=== PATIENT | male | born 1990 | race Caucasian/White ===

== ENCOUNTER 2018-06-22 18:00 | Emergency (ER) | payer OTHER, SELFPAY ==
[2018-06-22 18:02] VITALS: BP 145/81; PULSE 89; RESP 14; TEMP 36.6; O2SAT 98; BMI 35.4
--- NOTE | 2018-06-22 18:35 | RAD_ITS ---
STUDY: X-RAY - RIGHT ANKLE REASON FOR EXAM: Male, 28 years old. Injury TECHNIQUE: 3 view(s) of the ankle. COMPARISON: None. FINDINGS: Normal visualized distal tibia and fibula. Normal medial and lateral malleoli. Normal tibiotalar articulation and ankle mortise. Normal visualized talus and calcaneus. The visualized subtalar, talonavicular, calcaneocuboid and tarsal articulations are normal. The soft tissue structures are unremarkable. RAD/Ankle min 3 Views IMPRESSION: Normal x-ray examination of the ankle. Electronically Signed: Doni Melara DO at 19:21 EST Tel [phone], Service support ,
--- NOTE | 2018-06-22 20:03 | ED.DCSUM_ITS ---
- ER Visit Summary Date of Service: 06/22/18 Chief Complaint: Right ankle pain History of Present Illness: The patient is a 28 M who has no primary care physician. He reports just prior to coming emergency department he was playing a game where he jumped off of a wall with his right foot to dunk a basketball and felt like somebody punched him in the back of his foot. Since that time he has not been able to walk. He denies any other injuries. He did not twist his ankle. Reports his pain currently is 1 out of 10 severity. Physical Examination: Vitals: Stable. Afebrile. General: Well-nourished and well-developed. Head: Normocephalic atraumatic. Neck: Supple, no lymphadenopathy. No JVD. Nontender. Cardiovascular: Regular rate and rhythm. No murmurs. Respiratory: No respiratory distress. Clear to auscultation bilaterally. Abdominal: Soft, nontender, nondistended, normal bowel sounds. No guarding, rebound, or peritoneal signs. Back: Nontender. Extremities: Obvious defect over his right Achilles tendon consistent with a rupture. He is Ward test is abnormal. There is no pain over the medial or lateral malleoli. He has normal sensation light touch distally.. Skin: Normal color, no rash. Neurologic: Alert and oriented ?3. Cranial nerves II through XII are intact. Normal strength and sensation. Psych: Normal affect. Test Results: X-ray is negative Emergency Department Course and Treatment: Patient refused pain medications. He was placed in a posterior splint with plantar flexion. Treatment Plan: Patient was discussed with Dr. Zazueta. He will be discharged instructions to follow-up tomorrow for another exam. Return to the emergency department for any worsening symptoms. Disposition: To home in improved and stable condition. Impression: 1. Right Achilles tendon rupture. 2. Posterior splint, fabricated. This note was generated with [employer] dictation software. It may contain incorrect words, spelling, and punctuation that were not noted in review of the chart prior to signing ED Disposition - Plan for ED Patient: Disposition: Home or Assisted Living Chief Complaint: Lower Extremity Injury Instructions: ED Tendon Rupture Achilles Prescriptions: Hydrocodone Bitart/Apap 5-325 [[place] 5MG-325MG] 1 tablet PO Q4H PRN PRN 2 Days #10 tablet PRN Reason: Pain Referrals: Vicente Zazueta DPM [STAFF PHYSICIAN] - 1 Day for another exam
[2018-06-22 20:33] VITALS: RESP 18; O2SAT 98
== END 2018-06-22 20:33 | disposition home or self-care (01) ==
LOC: ED 18:36
PROVIDERS: Emergency Provider Emergency Medicine
DX: S86.011A Strain of right Achilles tendon, initial encounter (principal); X58.XXXA Exposure to other specified factors, initial encounter; Y93.39 Activity, other involving climbing, rappelling and jumping off; Y92.9 Unspecified place or not applicable
CPT/HCPCS: 29515; 73610; 99283

== ENCOUNTER → 2018-06-26 06:32 | Outpatient (CLI) | payer OTHER, SELFPAY ==
[2018-06-22 18:02] VITALS: BMI 35.4
--- NOTE | 2018-06-26 06:39 | MRI_ITS ---
STUDY: MRI RIGHT ANKLE WITHOUT CONTRAST REASON FOR EXAM: Right ankle pain from jumping injury 4 days ago. TECHNIQUE: Standardized fat and water weighted pulse sequences were obtained in all 3 orthogonal planes. COMPARISON: Radiographs 06/22/2018. FINDINGS: There is edema in the subcutis adipose space. There is a lobulated ganglion cyst at the posterior aspect of the tibiotalar articulation (T2 coronal images 9, 10) measuring approximately 3.4 cm in length. Normal posterior tibialis tendon. Normal flexor digitorum longus tendon. Normal flexor hallucis longus tendon. Normal peroneus longus and brevis tendons. Normal tibialis anterior tendon. Normal extensor hallucis longus tendon. Normal extensor digitorum longus tendons. There is a tear of the Achilles tendon in the watershed zone with a gap of approximately 1.8 cm between the major fragments (inversion recovery sagittal images 9, 10). Normal plantar fascia. Normal plantar calcaneal tubercles. Normal intrinsic muscles of the rearfoot. Normal distal tibiofibular syndesmotic ligamentous complex. Normal lateral ligamentous complex. There a small cyst in the sinus tarsi (inversion recovery sagittal images 6, 7). Normal deltoid ligamentous complexes. Normal plantar calcaneonavicular (spring) ligament. There is a small tibiotalar joint effusion (inversion recovery sagittal 11, 12). Normal talar dome. Normal subtalar articulations. Normal talonavicular articulation. Normal calcaneocuboid articulation. Normal navicular-cuneiform articulations. There is a small cyst in the body of the calcaneus near the sinus tarsi. MRI/Lower Ext Joint Only (Routine) IMPRESSION: Achilles tendon tear. Small tibiotalar joint effusion. Ganglion cyst at the posterior aspect of the tibiotalar articulation. Electronically Signed: Hudson Larson MD at 15:18 EST Tel , Service support ,
== END ==
PROVIDERS: Family Provider Family Medicine; PCP Family Medicine; Referring Provider Podiatrist; Visit Provider Podiatrist
DX: S86.011A Strain of right Achilles tendon, initial encounter (principal); M25.571 Pain in right ankle and joints of right foot
CPT/HCPCS: 73721

== ENCOUNTER → 2018-06-28 14:13 | Outpatient (CLI) | payer OTHER, SELFPAY ==
[2018-06-22 18:02] VITALS: BMI 35.4
[2018-06-28 16:10] LABS: Absolute Lymphocyte Count 2.31 X10^3/ul (0.83-4.51); Basophil# 0.03 X10^3/uL; Basophil% 0.4 % (0-1); Eosinophil# 0.53 X10^3/uL; Eosinophils% 7.2 % (0-5); Hematocrit 46.2 % (40-54); Hemoglobin 15.7 g/dl (13.0-16.5); Lymphocyte # 2.31 X10^3/ul (4.0); Lymphocyte % 31.5 % (19-41); Mean Corpuscular Hgb 29.3 pg (27.0-32.0); Mean Corpuscular Volume 86.2 fL (80-94); Monocyte# 0.44 X10^3/uL; Neutrophil # 4.02 X10^3/uL (2.7-7.7); Neutrophil % 54.8 % (47-70); Platelet Count 275 K/mm3 (150-450); RBC Distribution Width CV 12.2 % (11.6-14.6); RBC Distribution Width SD 38.2 fl (35.1-43.9); Red Blood Count 5.36 M/mm3 (4.6-6.2); White Blood Count 7.3 K/mm3 (4.4-11.0)
[2018-06-28 16:21] LABS: POSITIVE COUNT NO; POSITIVE DIFFERENTIAL NO; POSITIVE MORPHOLOGY NO
[2018-06-28 16:25] LABS: ALB/GLOB Ratio 1.2 RATIO (0.9-2.4); AST(SGOT) 28 U/L (15-37); Alanine Aminotransfer ALT/SGPT 63 U/L (16-61); Albumin, Serum 4.3 g/dL (3.2-5.0); Alkaline Phosphatase 124 U/L (45-117); Anion Gap 9 (5-15); BUN 18 mg/dL (7-18); BUN/Creat Ratio 15.8 RATIO (10-20); Calcium,Total 9.3 mg/dL (8.5-10.1); Chloride 105 mmol/L (98-107); Creatinine, Serum 1.14 mg/dL (0.70-1.30); EST Glomerular Filtration Rate 81 mL/min (>60); Est Glom Filt Rate - Afr Amer 98 mL/min (>60); Globulin 3.5 g/dL (2.2-4.2); Glucose 79 mg/dL (74-106); Protein, Total 7.8 g/dL (6.4-8.2); Sodium Level 139 mmol/L (136-145)
== END ==
PROVIDERS: Family Medicine; Family Provider Family Medicine; PCP Family Medicine; Visit Provider Family Medicine
DX: Z01.818 Encounter for other preprocedural examination (principal)
CPT/HCPCS: 36415; 80053; 85025

== ENCOUNTER 2018-06-30 14:04 | Day surgery (SDC) | payer OTHER, SELFPAY ==
[2018-06-30] VITALS (7 sets, daily range): BP systolic 130–158; BP diastolic 73–109; PULSE 70–98; RESP 16–18; TEMP 36.3–37; O2SAT 93–100; BMI 36.4
[2018-06-30] MEDS: Cefazolin 2 GM in 0.9% Normal Saline 100 ML IV (17:10)
--- NOTE | 2018-06-30 17:32 | RAD_ITS ---
STUDY: X-RAY - RIGHT ANKLE REASON FOR EXAM: Male, 28 years old. Achilles tendon repair. TECHNIQUE: 1 view(s) of the ankle. COMPARISON: None. FINDINGS: 1 lateral view of the calcaneus is submitted. There is a marker in the [id number] which projects over the posterior calcaneal tubercle either overlapping or embedded in the substance of the calcaneus. RAD/Ankle min 3 Views IMPRESSION: Single lateral view of the calcaneus with overlying marker/hardware appearing to be overlapping or embedded in the posterior portion of the calcaneal tubercle. Electronically Signed: Alea Thomas MD at 0:03 EST , Service support ,
[2018-06-30] MEDS: Bupivacaine 0.5% PF 10 ML VIAL (18:35)
--- NOTE | 2018-06-30 18:46 | OP.PN_ITS ---
Problem List (1) Achilles rupture, right Status: Acute (2) Pain of right lower extremity Status: Acute Immediate Post-Op Note Date of Procedure: 06/30/18 - Surgeon: Sangeetha Issa DPM. Family Law Mediator: Peter Bentley, PGY3 Primary Surgeon/Physician: Sangeetha Issa DPM wooden tank erector: none Pre-Operative Diagnosis: right achilles tendon rupture Post-Operative Diagnosis: right achilles tendon rupture Surgery/Procedure Performed:: repair of ruptured achilles tendon of right lower extremity (with arthrex PARS midsubstance speed bridge system) Description of Surgical Findings:: Hemostasis controlled Materials: 2-0 FiberWire from Arthrex PARS system and to swivel lock speed bridge anchors, 3-0 Vicryl, 3-0 nylon Complications: None Findings: Plantarflexion noted with Ward test after repair. See detailed operation report The patient tolerated the procedure and anesthesia well. He was transported to the PACU vital signs stable and vascular status intact to the right lower extremity. Postoperative orders were entered electronically. He will be discharged home upon continued stability. Estimated Blood Loss: < 50 mL Specimen's removed: none Type of Anesthesia:: General, Local - Postoperative: 15 cc of 1: 1 mixture of 0.5% Marcaine plain and 1% lidocaine plain administered in local infiltrative manner to all surgical repair sites, and sural nerve block fashion of the right lower extremity - Admit VTE Documentation VTE Present on Admission: No VTE Mechan Device Prophylaxis: SCD's VTE Pharm Prophylaxis ordered?: No Reason prophylaxis not ordered:: Treatment Not Indicated
--- NOTE | 2018-06-30 18:48 | DCINST_ITS ---
Discharge Diet: No Restrictions Discharge Activity: May not drive while taking narcotic pain medications., May Not Shower, Use Crutches - ok to use knee roller Weight Bearing Status: No weight bearing - keep splint intact Keep extremity elevated above heart level: Right Leg Call your doctor if your incision/area has: Continuous Slow Oozing, Sudden Increased Bleeding, Increased Pain/ Swelling, Increased Redness, Foul Smelling Discharge, Swelling at the incision site Call your doctor if you observe: Fever of 101 or Higher, Coldness, Increased Pain, Numbness or Tingling, Calf discomfort, Uncontrolled pain Cleanse incision/area with: Keep Dressing Clean & Dry Allergies/Adverse Reactions: Allergies No Known Allergies Allergy (Verified 06/28/18 13:31) Medications to take at Discharge Omeprazole [Prilosec] 20 mg PO DAILY 06/28/18 Primary Care Physician: Vicente Bonilla MD [Primary Care Provider] - Test Results: Test results from this visit will be discussed in further detail at your follow- up appointment, if applicable. Please Follow Up With: Sangeetha Issa DPM When: 07/04/18 10:30 AM [facility] Call [phone] sooner if concerns Proposed Discharge Date: 06/30/18
--- NOTE | 2018-06-30 19:23 | PCM.OPRPT ---
Problem List (1) Achilles rupture, right Status: Acute (2) Pain of right lower extremity Status: Acute Report of Operation Date of Procedure: 06/30/18 - Surgeon: Sangeetha Issa DPM. Arabic Professor: Peter Bentley, PGY3 Pre-Operative Diagnosis: right achilles tendon rupture Post-Operative Diagnosis: right achilles tendon rupture Surgery/Procedure Performed:: repair of ruptured achilles tendon of right lower extremity (with arthrex PARS midsubstance speed bridge system) Description of Surgical Findings:: Hemostasis: Well-padded pneumatic right thigh tourniquet 300 mmHg, 55 minutes Materials: 2-0 FiberWire from Arthrex PARS system and to swivel lock speed bridge anchors, 3-0 Vicryl, 3-0 nylon Complications: None director business integration: none Type of Anesthesia:: General, Local - Postoperative: 15 cc of 1: 1 mixture of 0.5% Marcaine plain and 1% lidocaine plain administered in local infiltrative manner to all surgical repair sites, and sural nerve block fashion of the right lower extremity Specimen's removed: none Estimated Blood Loss (mL): < 50 mL Description of Procedure: Indications: This 28-year-old male with no significant past medical history sustained an injury within the past week while playing basketball. He landed from a jump and reports it felt like somebody kicked him in the back of the leg. He was then unable to bear weight and control the motion of his foot. His neurovascular status remains intact. He does have lack of plantar flexion available with the Ward test on the right lower extremity. The preoperative indications, planned procedure, possible benefits, risks, complications, and anticipated healing time and management were discussed in detail with patient. He understands and elects to proceed with surgery at this time. No guarantees were made. He understands complications and risks include but are not limited to the following: Pain, swelling, scarring, numbness, chronic pain, over under correction, hardware failure, need for revisional surgery, blood clot, allergic reaction, loss of limb, function, or life. I answered all of his questions. The surgical consent and surgical limb were signed. His preoperative history and physical exam was reviewed as well as his preoperative diagnostic data. His initial x-rays obtained at the emergency room did not demonstrate any other associated fractures or dislocations. An MRI was obtained and it demonstrated a 2.8 cm gap of his ruptured Achilles tendon approximately 4 cm proximal to the insertion of the Achilles on the calcaneus. There were no other acute injuries noted. Procedure in detail: The patient was transported to the operating room via cart and placed on the operating table in the prone position. Final verification of the patient, surgery, limb designation was performed via the timeout procedure. General anesthesia was initiated prior to patient positioning in the prone position. A well-padded pneumatic right thigh tourniquet was placed. IV antibiotics were administered preoperatively by the anesthesia team. The right lower extremity was prepped and draped in the usual aseptic manner. An Esmarch bandage was used to exsanguinate the limb and the tourniquet was inflated at this time. Surgery began in the following manner: Attention was first directed to the palpable del proximal aspect which was around the 7 cm viktor proximal to the insertion at the achilles tendon on the calcaneus. Just proximal to this presumed Achilles rupture site about 1 cm away, a transverse 2-1/2 centimeter linear incision was made in the skin. Blunt dissection was performed down to the peritenon level taking care to identify, protect, and retract all neurovascular structures at this point and throughout the remainder of the surgery. The peritenon was immediately identified and a small rent was made in the peritenon in which the Achilles tendon was next visualized as was the distal tear aspect. This was mobilized and the pars jig was entered along the proximal Achilles tendon portion. This was securely held in place meanwhile 5 Arthrex fiber wires were placed in a sequential manner according to standard protocol and they were locked in place and threaded through the proximal part of the Achilles tendon to create a percutaneous locking structure. These were tested and pulled to reduce creep. Additionally, a Nico needle was used to thread the loose FiberWire and so that they exit through the mid substance of the Achilles to improve tendon reapproximation. Next, 2 small centimeter linear incisions were made to the posterior aspect of the heel just distal to the Achilles attachment site through the skin. Blunt dissection was performed down to the bone. And Arthrex drill and tap were utilized to create the anchor points that would later receive the previously applied fiber wire throught the distal portion of the Achilles tendon. A banana wire lasso was next advanced through the distal part of the Achilles and out through the mid substance rupture area. The fiber wires were threaded through this and advanced down to the calcaneus anchor points. A swivel lock anchor was applied to each of the holes and secured in place. Intraoperative fluoroscopy was used to confirm adequate tapping and placement were performed. This was successfully done and was tested for strength and proper positioning which was achieved. This was secured in place with the ankle in maximum plantarflexion. Dorsiflexion was then noted with the Ward test and the tension balancing was equivalent to the contralateral non-injured side. Minimal deep suture was used to reapproximate the peritenon. Saline irrigation was performed. The tourniquet was deflated. Brisk capillary refill time was noted to all digits of the right foot and no pulsatile bleeding was noted. The skin was next reapproximated utilizing 3-0 nylon with simple and horizontal mattress technique. A postoperative dressing consisting of Adaptic soaked Betadine, 4 x 4 gauze, Kerlix were applied. Additionally, a well-padded posterior mold was applied with the ankle in a maximum plantar flexed position. After procedure: The patient tolerated the procedure and anesthesia well. He was transported to the PACU with vital signs stable and vascular status intact to the right lower extremity. He was advised to maintain a strict nonweightbearing status to the right lower extremity with his splint and dressings clean, dry, and intact. He was advised to follow up with me in the office in 1 week. To ice and elevate for pain and inflammation management. He was provided with postoperative pain medicine, [place], and advised on safe and proper use. All of his postoperative orders were entered electronically. He will be discharged home upon continued PACU stability. Sangeetha Issa DPM, FACFAS [facility] - Complications none
== END 2018-06-30 20:53 | disposition home or self-care (01) ==
LOC: SDC 14:05 → AC 14:06
PROVIDERS: Family Provider Family Medicine; PCP Family Medicine; Referring Provider Podiatrist; Visit Provider Podiatrist
PROC: (CPT 27650; principal; 2018-06-30 15:35)
DX: S86.011A Strain of right Achilles tendon, initial encounter (principal); Y93.39 Activity, other involving climbing, rappelling and jumping off; Y93.67 Activity, basketball; Y92.9 Unspecified place or not applicable; F17.220 Nicotine dependence, chewing tobacco, uncomplicated; K21.9 Gastro-esophageal reflux disease without esophagitis; Z79.899 Other long term (current) drug therapy
CPT/HCPCS: 01472; 27650; 64445; 73610; 76000; C1713; J7120; J2405

== ENCOUNTER 2018-10-23 08:30 | Outpatient (RCR) | payer OTHER, SELFPAY ==
[2018-06-30 14:28] VITALS: BMI 36.4
--- NOTE | 2018-08-28 08:35 | HP.PTEVAL_ITS ---
Patient's Visit Information MISHEL DAVIS is a 28 year old M referred to Physical Therapy by Sangeetha Issa DPM with a diagnosis of R dmitry srupture s/p repair 06/30. Date of Evaluation: 08/28/18 Physical Therapist: Kingsley Kim DPT, OCS, CSCS - Visit Plan Frequency: 2-3x /Week Duration: 2 Months Plan: 2-3x/week for 4-8 weeks for. 1. rollotu and stretch gastroc soleus. 2. strength and prorioception R ankle. 3. gait training to steps. 4. Return to function(sport allowed in late September) - Subjective Findings: 9 weeks(06/30) ago had R achilles repair. Torn palying game in wrestling room 3 months ago.. In cast for 3 weeks then walking boot since. No pain lately. Sleeping well in no boot. Is a student and can do all of that. Basic aDLs are OK, just slow. 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 - Objective walks with boot on R I, dons and doffs I. Walks without boot with R antalgia due to loos of ROM and keeps R hip abducted. R ankle aROM. Df: -2, eversion 20, inv: 25, PF 48. Gastroc and soleus very tight R as compared to L. strength is 4/5 R inv/ev and 4+ DF, then 3+ PF. L is 5/5 [address] directions. Tender slightly over achilles incision but healed well. Knee strength 5/ on L and 4+ on R. - Goals Goal 1:: Full aROM R ankle and no tightness in gastroc. Goal Time Frame: 2-4 Weeks Goal 2:: R heel raise easily and I Goal Time Frame: 6-8 Weeks Goal 3:: Walk without antalgia I in community Goal Time Frame: 2-4 Weeks Goal 4:: Sterps reciprocal without rail Goal Time Frame: 4-6 Weeks Goal 5:: Patient feel 100% back to normal ADLS outside of sports Goal Time Frame: 6-8 Weeks - Rehabilitation Potential Physical Therapy Diagnosis: R achilles repair Rehabilitation Potential: Fair - Anticipated Interventions Patient/Client Instruction: Educate patient on: Condition, Plan of Care For the Purpose of:: To decrease pain, To increase ROM, To improve muscle performance and motor function, To increase tolerance to activity/condition/position, To improve ability of physical actions for home/community/work/leisure Therapeutic Exercise to Include: Strength training, Balance training, Flexibilty training, Gait and locomotor training, Passive ROM, Active ROM For the Purpose of:: To increase ROM, To improve nutrient delivery to tissue, To increase oxygenation perfusion, To improve muscle performance and motor function, To improve ability to perform ADL's, To increase tolerance to activity/condition/position, To improve ability of physical actions for home/ community/work/leisure Manual Therapy Techniques to Include: Soft tissue mobilization For the Purpose of:: To increase ROM Cryotherapy (ice pack, ice massage): Yes For the Purpose of:: To decrease swelling/inflammation Thank you for the opportunity to evaluate your patient. For Medicare and Medicare HMO plans, please review the plan of care and approve it. It will need to be FAXED BACK to us at [phone] for Medicare purposes. For Medicare only, by signing this I certify the plan of care. Please let me know if there are questions or concerns regarding this plan of care. Physician Signature: Date:
--- NOTE | 2018-10-23 08:54 | HP.PTREVAL ---
Sangeetha Issa DPM, It has been my pleasure to treat MISHEL DAVIS over the last 7 visits for R dmitry srupture s/p repair 06/30. Please see the progress note below for an update on the physical therapy plan of care! Subjective: Not as strong as I want it to be but better. No pain. Strengthening in gym 2x/week. Objective/Function: Full AROM R ankle with 8 degrees DF and 10 degrees with knee bent. 5/5 PF strength to test but still weaker than L in heel raise. Able to heel raise on R and walks normal with VC after scar massage today. Jogging shows deficits in push off on R, tends to be on hindfoot moreso R than L with sideshuffle and carioce. OVERALL DOING VERY WELL, STILL A LITTLE WEAK BUT PROGRESSING NICELY. Plan Plan: pateint to emphasize strength and add in 3x/week gentle 100 foot jog and carioce/sideshuffle. Will see again in 3 weeks after doctor visit for progression to plyometrics, longer jog, sprint etc if released. Pt to call prior if problems. Goals Goal 1:: Full aROM R ankle and no tightness in gastroc. Goal Time Frame: 2-4 Weeks Goal Progress: Goal Met Goal 2:: R heel raise easily and I Goal Time Frame: 6-8 Weeks Goal Progress: unable today,approp. Goal 3:: Walk without antalgia I in community Goal Time Frame: 2-4 Weeks Goal Progress: Goal Met Goal 4:: Sterps reciprocal without rail Goal Time Frame: 4-6 Weeks Goal Progress: ,et but needs strength\ Goal 5:: Patient feel 100% back to normal ADLS outside of sports Goal Time Frame: 6-8 Weeks Goal Progress: Progressing Anticipated Interventions Patient/Client Instruction: Educate patient on: Condition, Plan of Care For the Purpose of:: To decrease pain, To increase ROM, To improve muscle performance and motor function, To increase tolerance to activity/condition/position, To improve ability of physical actions for home/community/work/leisure Therapeutic Exercise to Include: Strength training, Balance training, Flexibilty training, Gait and locomotor training, Passive ROM, Active ROM For the Purpose of:: To increase ROM, To improve nutrient delivery to tissue, To increase oxygenation perfusion, To improve muscle performance and motor function, To improve ability to perform ADL's, To increase tolerance to activity/condition/position, To improve ability of physical actions for home/community/work/leisure Manual Therapy Techniques to Include: Soft tissue mobilization For the Purpose of:: To increase ROM Cryotherapy (ice pack, ice massage): Yes For the Purpose of:: To decrease swelling/inflammation Please do not hesitate to contact me at [phone] by phone or if you have questions or concerns regarding this new plan of care! Sincerely, Kingsley Kim, DPT, OCS, CSCS
--- NOTE | 2019-01-30 18:41 | HP.PTDCNRP_ITS ---
HP - Discharge Summary (1) - Patient Information MISHEL DAVIS was seen in my office for initial evaluation on 08/28/18. The following Plan of Care was established for this patient: Initial Frequency: 2-3x /Week Initial Duration: 2 Months - Anticipated Interventions Patient/Client Instruction: Educate patient on: Condition, Plan of Care For the Purpose of:: To decrease pain, To increase ROM, To improve muscle p erformance and motor function, To increase tolerance to activity/condition/position, To improve ability of physical actions for home/community/work/leisure Therapeutic Exercise to Include: Strength training, Balance training, Flexibilty training, Gait and locomotor training, Passive ROM, Active ROM For the Purpose of:: To increase ROM, To improve nutrient delivery to tissue, To increase oxygenation perfusion, To improve muscle performance and motor function, To improve ability to perform ADL's, To increase tolerance to activity/condition/position, To improve ability of physical actions for home/community/work/leisure Manual Therapy Techniques to Include: Soft tissue mobilization For the Purpose of:: To increase ROM Cryotherapy (ice pack, ice massage): Yes For the Purpose of:: To decrease swelling/inflammation This patient was last seen in our office 10/23/18. Pertinent comments regarding their Physical therapy will appear below: Pt seen 7 visits of POC adn was doing well although still lacking strength at last visit. He was to strengthen at home and f/u 3 weeks later but cancelled one visit and no showed for another. at this point, it has been over 3 months adn I will discontinue due to nonattendance At this point I will be discontinuing this patient from physical therapy. I would be happy to see this patient again in the future if found appropriate by the physician. Thank you! Kingsley Kim, DPT, OCS, CSCS
== END 2018-10-23 19:00 | disposition home or self-care (01) ==
LOC: PT 08:30
PROVIDERS: Family Provider Family Medicine; PCP Family Medicine; Referring Provider Podiatrist; Visit Provider Podiatrist
DX: Z98.890 Other specified postprocedural states (principal)
CPT/HCPCS: 97110; 97140; 97162; 97530

== ENCOUNTER 2019-08-16 09:10 | Observation (INO) | payer OTHER, SELFPAY ==
[2018-06-30 14:28] VITALS: BMI 36.4
[2019-08-16] VITALS (7 sets, daily range): BP systolic 115–155; BP diastolic 56–66; PULSE 52–66; RESP 14–18; TEMP 36.4–36.8; O2SAT 96–100; BMI 35.6; BMI 35.2
--- NOTE | 2019-08-16 09:21 | EKG12_ITS ---
Test Reason : Blood Pressure : / mmHG Vent. Rate : 064 BPM Atrial Rate : 064 BPM P-R Int : 142 ms QRS Dur : 090 ms QT Int : 462 ms P-R-T Axes : 050 054 037 degrees QTc Int : 476 ms Sinus rhythm with Premature atrial complexes Otherwise normal ECG Confirmed by SANTIAGO WEISS, CHENG ([id number]), avid editor DANISHA DIAZ ([id number]) on 08/20/2019 10:09:44 AM Referred By: Kingsley Brooks Confirmed By:CHENG HENDERSON MD
--- NOTE | 2019-08-16 09:25 | RAD_ITS ---
STUDY: X-RAY CHEST REASON FOR EXAM: Male, 29 years old. GOT UP THIS AM AND FELT LIKE HE WAS GOING TO PASS OUT. DIAPHORETIC, PALE, CLAMMY, NAUSEA. TECHNIQUE: Single AP portable view of the chest. COMPARISON: None. FINDINGS: EKG electrodes are seen. The lungs are clear and expanded. There is no demonstrated pleural abnormality. Normal size heart. Normal mediastinum and nathen. Normal visualized pulmonary arteries. Normal visualized aortic arch and descending thoracic aorta. Normal visualized thoracic spine. Normal visualized ribs, clavicles, and shoulders. There is no demonstrated abnormality of the visualized soft tissue structures of the upper abdomen. RAD/Chest 1 View (Portable) IMPRESSION: Normal x-ray examination of the chest. Electronically Signed: James Cannon, at 9:55 EST , Service support ,
[2019-08-16] MEDS: 0.9% Normal Saline 1,000 ML 1000 ML IV (09:26)
[2019-08-16] MEDS: Ondansetron 4 MG/2 ML Vial IV (09:30)
--- NOTE | 2019-08-16 09:37 | ED.DCSUM_ITS ---
History of Present Illness Chief Complaint: Dizziness Informant: Patient Onset: Today Context: Gradual Onset Timing: Continuous Narrative: Patient is a 29-year-old male with history of diet-controlled hypertension presenting with dizziness. Patient states when he woke up in the got out of bed this morning he started to feel dizzy. He noticed it mostly when he was walking from the bathroom. States he feels like he is going to pass out. He has some blurry vision associated with it. He has associated cold sweats and nausea as well as vomiting mucus. He denies any cough or myalgias. Eyes any fever or chills. He denies any chest pain, shortness of breath, abdominal pain or urinary symptoms. The symptoms started approximately an hour and a half prior to arrival. They have persisted. They do not seem to be associated with moving his head or position. They are worse when he tries to stand up or exert himself. Past Medical History - Allergies and Home Meds Allergies/Adverse Reactions: Allergies No Known Allergies Allergy (Verified 06/28/18 13:31) Past Medical History: - - Possible history of hypertension but station states he tries to control it with diet and exercise Surgical History: noncontributory Smoking Status: Never smoker Drugs: None - Family History Maternal Family History: Reports: - - no CVA Review of Systems General: Reports: Chills, Malaise, Sweats, - - Dizziness. Denies: Fever Eyes: Denies: Visual changes - bilaterally, Diplopia ENT: Denies: Rhinorrhea, Sore throat Cardiovascular: Denies: Chest pain, Palpitations Respiratory: Denies: Dyspnea, Cough, Dyspnea on exertion Gastrointestinal: Reports: Nausea, Vomiting. Denies: Abdominal pain, Diarrhea, Melena, Hematochezia Genitourinary: Denies: Dysuria, Hematuria, Frequency Musculoskeletal: Denies: Myalgias, Back pain, Extremity Pain Skin: Denies: Rash, Wounds Neurological: Denies: Headache, Weakness, Numbness Physical Exam Vital Signs/Narrative: Vital Signs Temp Pulse Resp BP Pulse Ox 08/16/19 09:11 97.5 F L 66 18 155/61 H 99 Inital Vital Signs reviewed: Yes General: Well nourished, Well developed, No Acute Distress Head: Normocephalic, Atraumatic Eyes: Perrl, EOMI, - - Bilateral horizontal nystagmus, fatiguing, no vertical nystagmus ENT: Moist mucous membranes, No rhinorrhea, TM's clear Neck: Supple, Nontender, No lymphadenopathy Cardiovascular: Regular rate, Regular rhythm, No murmurs Respiratory: No distress, CTA bilaterally, Chest nontender Abdomen: Soft, Nontender, Nondistended, Normal bowel sounds Back: Nontender, Normal Inspection Extremities: Nontender, No edema Skin: Normal color, No rash, Diaphoresis, Pallor Neurological: Alert, Oriented x3, Cranial nerves II-XII grossly intact, Normal Strength, Normal Sensation, - - Normal coordination with [id number] Psychological: Normal affect, Normal Mood Diagnostic/Tx/Re-eval - Rhythm Strip Rhythm Strip: Sinus Rhythm Rate: 64 Ectopy: None - EKG Initial EKG Interpretation: Sinus Rhythm, - - Normal sinus rhythm at a rate of 64 with sinus arrhythmia SC interval 142 QRS 90 QTc [address] segments - Medical Decision Making Patient is initially evaluated for nausea, feeling unwell and diaphoresis. He states he feels dizzy but he is nondescript. Is difficult to get an initial exam on him. He is given IV fluids and Zofran. He does have some mild nystagmus on exam initially. Work-up does show a mild transaminitis as well as an elevated total bili. He does not have any abdominal pain. He has had exposure to student with mono so I did check a Monospot which was negative. CT of the abdomen and pelvis did not show any acute intra-abdominal pathology. On reevaluation his vertigo is becoming more pronounced. It is reproducible with head movements but it is consistent with peripheral vertigo. He has a normal [id number] and no truncal ataxia. He is given IV Ativan for his symptoms. Patient has minimal improvement. He is then given p.o. Valium. He says he is starting to feel better. He is attempted to ambulate with the plan on discharge home but he is unable to because of the severity of his symptoms. Patient be admitted for symptom control secondary to his vertigo. ED Disposition - Plan for ED Patient: Disposition: Acute Care [facility] Diagnosis: Vertigo
[2019-08-16 09:42] LABS: Absolute Neutrophil Count 5.1 X10^3/uL (2.0-7.7); Basophil# 0.03 X10^3/uL; Basophil% 0.3 % (0-1); Eosinophil# 0.28 X10^3/uL; Eosinophils% 2.8 % (0-5); Hematocrit 45.8 % (40-54); Hemoglobin 15.1 g/dL (13.0-16.5); Lymphocyte % 39.3 % (19-41); Mean Corpuscular Hgb 28.5 pg (27.0-32.0); Mean Corpuscular Volume 86.4 fL (80-94); Mean Platelet Vol. 9.5 fl (6.2-12.0); Monocyte# 0.57 X10^3/uL; Monocyte% 5.7 % (0-10); NRBC Flagged by Analyzer 0 % (0-5); Neutrophil % 51.5 % (47-70); Platelet Count 235 K/mm3 (150-450); RBC Distribution Width CV 12.3 % (11.6-14.6); White Blood Count 9.9 K/mm3 (4.4-11.0)
[2019-08-16 09:57] LABS: ALB/GLOB Ratio 1.2 RATIO (0.9-2.4); AST(SGOT) 51 U/L (15-37); Alanine Aminotransfer ALT/SGPT 113 U/L (16-61); Albumin, Serum 4.2 g/dL (3.2-5.0); Alkaline Phosphatase 104 U/L (45-117); Anion Gap 7 (5-15); BUN 20 mg/dL (7-18); BUN/Creat Ratio 14.6 RATIO (10-20); Chloride 110 mmol/L (98-107); Creatinine, Serum 1.37 mg/dL (0.70-1.30); EST Glomerular Filtration Rate 65 mL/min (>60); Est Glom Filt Rate - Afr Amer 79 mL/min (>60); Estimated Creatinine Clearance 64.03 ml/min; Globulin 3.4 g/dL (2.2-4.2); Glucose 133 mg/dL (74-106); Lipase 97 U/L (73-393); Potassium 3.6 mmol/L (3.5-5.1); Protein, Total 7.6 g/dL (6.4-8.2); Sodium Level 143 mmol/L (136-145)
[2019-08-16 10:29] LABS: Internal QC Validated? YES +Cl - CLEAR BKGD; Monotest Negative (Negative)
[2019-08-16 10:30] LABS: Bacteria 0 SEEN /hpf (None Seen); Mucous, Urine 0 SEEN /hpf (<or=2+); Red Blood Cells-Urine 0 SEEN /hpf (0-5); Squamous Epithelial Cells - UA 0 SEEN /hpf (0-5); White Blood Cells 0 SEEN /hpf (0-5)
[2019-08-16 10:37] LABS: Color, Urine Yellow (Yellow); Glucose, Dipstick Normal (Normal); Ketone-Dipstick 15 mg/dl (Negative); Leukocyte Esterase-Dipstick Negative /ul (Negative); Nitrite-Dipstick Negative (Negative); Occult Blood-Urine Negative /ul (Negative); Protein-Dipstick Negative (Negative); Specific Gravity, Urine 1.015 (1.002-1.030); Urine Bilirubin Dipstick Negative (Negative); Urine Clarity Clear (Clear); Urine Urobilinogen Normal (Normal)
--- NOTE | 2019-08-16 10:48 | CT_ITS ---
STUDY: CT ABDOMEN AND PELVIS WITHOUT CONTRAST REASON FOR EXAM: Male, 29 years old. ELEV. LIVER ENZYMES. NAUSEA, TRANSAMINITIS, NAUSEA, DIAPHORETIC, PALE, CLAMMY, NEAR SYNCOPE RADIATION DOSAGE (If Supplied By Facility): CTDIvol = ( 14.31 ) mGy, DLP = ( 755.39 ) mGycm TECHNIQUE: Transaxial images were obtained from the dome of the diaphragm to the symphysis pubis without oral contrast, and without intravenous contrast. Sagittal and coronal images were reconstructed. Individualized dose optimization techniques were used for this CT. COMPARISON: None. FINDINGS: Minimal increased markings at the lung bases suggestive of mild bibasilar atelectasis. The visualized portions of the heart are within normal limits. Normal liver. Normal gallbladder and extrahepatic biliary system. Normal spleen. Normal pancreas. Normal bilateral adrenal glands. Normal right kidney. Normal left kidney. There is a small hiatal hernia. Normal small intestine. Normal colon. The appendix is visualized and appears normal. Normal abdominal aorta. Normal inferior vena cava. Normal retroperitoneum. Normal urinary bladder. Normal abdominal wall. Normal osseous structures. CT/Abdomen/Pelvis W IV Cont ONLY IMPRESSION: Normal unenhanced CT of the abdomen and pelvis. Electronically Signed: James Cannon, at 11:42 EST , Service support ,
[2019-08-16] MEDS: LORazepam 2 MG/ML Syringe 0.5 MG IV (11:22)
[2019-08-16] MEDS: diazePAM 5 MG Tablet PO (13:20)
[2019-08-16] MEDS: Meclizine HCl 25 MG Tablet PO ×2 (15:28→21:08)
--- NOTE | 2019-08-16 16:07 | HP.PCM_ITS ---
History of Present Illness Date of Admission: 08/16/19 Chief Complaint: dizziness The patient is a 29 year old M with acute onset of dizziness today. Patient said he got up to the bathroom and then just fell because he was so dizzy. Did not hit his head nor lose consciousness. Patient is never had dizziness like this ever before. Presents to the emergency room and he underwent a work-up. Patient was also having nausea. Patient was noted to have elevated bilirubin as well as AST and ALT. Patient underwent a CT of the abdomen pelvis that was unremarkable. Try to get patient up but he still profoundly dizzy so the hospital service was asked to evaluate the patient for admission. Patient denies any recent illnesses and is otherwise been feeling well as of late until today. [] Past Medical History Allergies No Known Allergies Allergy (Verified 06/28/18 13:31) Home Medications: Ambulatory Orders Medication Instructions Recorded Omeprazole [Prilosec] 20 mg PO DAILY 06/28/18 Surgical History: Surgical History (Last Updated 08/16/19 @ 16:14 by Kingsley Brooks DO) H/O Achilles tendon repair Z98.890 Surgical History: noncontributory Lives: With Family Smoking Status: Never smoker Drugs: None - *Family History Maternal History Items: - - no CVA Review of Systems Constitutional: Denies: Chills, Fever, Weight Change Eyes: Denies: Blurred vision, Double vision HEENT: Denies: Head Aches, Sinus Congestion, Sinus Drainage Cardiovascular: Denies: Chest Pain, Palpitations Respiratory: Denies: Cough, Shortness of breath at rest, Sputum production Gastrointestinal: Reports: Nausea, Vomiting Genitourinary: Denies: Dysuria Musculoskeletal: Denies: Joint Pain, Joint Tenderness Skin: Denies: Rash, Wounds Neurological: Reports: Balance problems. Denies: Blurred vision, Double vision, Numbness Psychiatric: Denies: Anxiety, Depression Endocrine: Denies: Change in Body Habitus, Heat/ Cold Intolerance Hematologic/ Lymphatic: Denies: Easy Bruising, Easy Bleeding, Hx of blood clot Comment: All review systems otherwise negative except for as mentioned above and in the HPI. VTE Information - Inpt Only VTE Present on Admission: No VTE Mechan Device Prophylaxis: None VTE Pharm Prophylaxis ordered?: No Patient Problems: Active and Suspected Problems Vertigo (Acute) - Physical Exam Vitals/I&O's: Vital Signs Temp Pulse Resp BP Pulse Ox 36.7 C 61 17 115/65 98 08/16/19 15:45 08/16/19 15:28 08/16/19 15:28 08/16/19 15:28 08/16/19 15:28 Oxygen Delivery Method Room Air Weight: 91.263 kg Body Mass Index (BMI) 35.6 Intake and Output for Last 24 Hours 08/14/19 08/15/19 08/16/19 23:59 23:59 23:59 Intake Total 1000 / 999 Balance 1000 / 999 General: Alert, Cooperative, No apparent distress HEENT: Atraumatic, PERRLA, EOMI - Right lateral nystagmus that is very intense but then fatigues., Normocephalic Oral: Moist Mucosa, No Gingival or Mucosal Lesions/ Ulcerations Neck: No Nodes, Trachea Midline Lungs: Clear to auscultation, Normal air movement, No rhonchi, No wheeze Cardiovascular: Regular rate, Regular Rhythm, Normal S1, Normal S2, No murmurs Abdomen: Bowel Sounds Present, Soft, Non Tender, Non-Distended, No Hepato- splenomegaly Extremities: No edema, No Calf Tenderness Skin: No rashes, No breakdown Musculoskeletal: No Tenderness to Palpation of Joints or Extremities, No Muscle Wasting Neurological: Cranial nerves II-XII grossly intact, Neuro grossly intact, Motor Exam 5/5 strength throughout, Coordination normal Psych/Mental Status: Appropriate, Anxious Microbiology Past 72 Hours 08/16/19 09:30 Mucosa - Nose Influenza Types A,B Direct FA (NAIN) - Final Laboratory Results 08/16/19 09:30: WBC 9.9, RBC 5.30, Hgb 15.1, Hct 45.8, MCV 86.4, MCH 28.5, MCHC 33.0, RDW Std Deviation 39.0, RDW Coeff of Davian 12.3, Plt Count 235, MPV 9.5, Immature Gran % (Auto) 0.400, Neut % (Auto) 51.5, Lymph % (Auto) 39.3, [place] % (Auto) 5.7, Eos % (Auto) 2.8, Baso % (Auto) 0.3, Absolute Neuts (auto) 5.1, Abs olute Lymphs (auto) 3.90, Nucleated RBC % 0 01/09/20 09:30: Sodium 143, Potassium 3.6, Chloride 110 H, Carbon Dioxide 26.0, Anion Gap 7, BUN 20 H, Creatinine 1.37 H, Estim Creat Clear Calc 64.03, Est GFR (MDRD) Af Amer 79, Est GFR (MDRD) Non-Af 65, BUN/Creatinine Ratio 14.6, Glucose 133 H, Calcium 9.0, Total Bilirubin 2.50 H, AST 51 H, ALT 113 H, Alkaline Phosphatase 104, Troponin I < 0.015, Total Protein 7.6, Albumin 4.2, Globulin 3.4, Albumin/Globulin Ratio 1.2, Lipase 97 08/16/19 10:10: Monoscreen Negative 08/16/19 10:25: Urine Color Yellow, Urine Clarity Clear, Urine pH 5.0, Ur Specific [place] 1.015, Urine Protein Negative, Urine Glucose (UA) Normal, Urine Ketones 15 H, Urine Occult Blood Negative, Urine Nitrite Negative, Urine Bilirubin Negative, Urine Urobilinogen Normal, Ur Leukocyte Esterase Negative, Urine RBC 0 SEEN, Urine WBC 0 SEEN, Ur Squamous Epith Cells 0 SEEN, Urine Bacteria 0 SEEN, Urine Mucus 0 SEEN Clinical Impression(s) from Imaging Studies Chest X-Ray 08/16/19 09:25 IMPRESSION: Normal x-ray examination of the chest. Electronically Signed: James Cannon, at 9:55 EST , Service support , Abdomen/Pelvis CT 08/16/19 10:48 IMPRESSION: Normal unenhanced CT of the abdomen and pelvis. Electronically Signed: James Cannon at 11:42 EST , Service support , Assessment/Plan All Active Problems Achilles rupture, right (Acute) Pain of right lower extremity (Acute) Vertigo (Acute) 1. Acute benign paroxysmal positional vertigo * Symptoms began acutely today. * Exam is consistent with benign vertigo with a likely right-sided focus * For as needed meclizine and patient was made aware that this is only to help with the dizziness plus therapy to evaluate for vestibular rehab. * Patient and family advised that this can occur very quickly but also resolve very quickly so is possible he may resolve spontaneously. * Given his exam is very consistent with benign paroxysmal positional vertigo, I do not feel any additional work-up is necessary at this time. Would only proceed with additional work-up unless his symptoms change or suggest another central process. 2. Abnormal LFTs * Patient's bilirubin is up which it has been in the past though higher now. ALT is up which it has been in the past and AST is slightly abnormal whereas been normal in the past. Patient is asymptomatic. Unclear as to what this is but appears that this may be not a new process. * I asked that the patient is ever been jaundiced but he has no recollection of being jaundiced and patient's mother states that he was only jaundiced when he was in just born. Possibilities could be Gilbert's disease versus fatty liver. Advised further evaluation as outpatient with his primary care provider and possible gastroenterology evaluation. * Since this is not directly germane to his symptoms will not proceed with any additional work-up other than some routine lab test which will be performed in the morning. Patient has dramatic worsening then would likely need to proceed with additional evaluation at that time. 3. VTE prophylaxis: Not indicated as the patient is currently observation status. Case discussed with the patient's mother and father at bedside. Code Visit OBSV E&M: 10391 Initial observation care L3
[2019-08-16] MEDS: 0.9% Normal Saline 1,000 ML 150 ML IV (17:03)
[2019-08-17 02:53] VITALS: BP 111/55; PULSE 58; RESP 16; TEMP 36.8; O2SAT 97
[2019-08-17 06:53] LABS: ALB/GLOB Ratio 1.2 RATIO (0.9-2.4); AST(SGOT) 28 U/L (15-37); Alanine Aminotransfer ALT/SGPT 87 U/L (16-61); Albumin, Serum 3.7 g/dL (3.2-5.0); Alkaline Phosphatase 91 U/L (45-117); Anion Gap 4 (5-15); BUN 15 mg/dL (7-18); Calcium,Total 8.8 mg/dL (8.5-10.1); Chloride 112 mmol/L (98-107); Creatinine, Serum 1.07 mg/dL (0.70-1.30); EST Glomerular Filtration Rate 87 mL/min (>60); Est Glom Filt Rate - Afr Amer 105 mL/min (>60); Estimated Creatinine Clearance 81.98 ml/min; Globulin 3.1 g/dL (2.2-4.2); Glucose 92 mg/dL (74-106); Potassium 3.8 mmol/L (3.5-5.1); Protein, Total 6.8 g/dL (6.4-8.2); Sodium Level 143 mmol/L (136-145)
[2019-08-17 09:03] VITALS: BP 116/58; PULSE 56; RESP 14; TEMP 36.4; O2SAT 99
[2019-08-17] MEDS: Meclizine HCl 25 MG Tablet PO ×3 (09:06→21:08)
[2019-08-17] MEDS: Pantoprazole Sodium 20 MG Tablet PO (09:06)
[2019-08-17] MEDS: 0.9% Saline Lock 10 ML Syringe IV ×2 (09:06→09:55)
[2019-08-17] MEDS: Ondansetron 4 MG/2 ML Vial IV (09:55)
--- NOTE | 2019-08-17 14:30 | PN_ITS ---
Patient Problems: Active and Suspected Problems Vertigo (Acute) Subjective: Chief complaint: Follow-up after admission for that to be due to BPPV. Patient seen and examined this morning as well as this afternoon. He still complaining of spinning sensation, more looking to the right side. He is preferring left side on looking to the TV. He complained of nausea as well. Alvaro's maneuver was tried by the therapist today and patient did feel slight bit better but vertigo came back. He has been bradycardic, heart rate has been in the high 50s but patient is athletic. Other vital signs are stable. - Physical Exam Vitals/I&O's: Vital Signs Temp Pulse Resp BP Pulse Ox 97.6 F L 56 L 14 116/58 L 99 08/17/19 09:03 08/17/19 09:03 08/17/19 09:03 08/17/19 09:03 08/17/19 09:03 Oxygen Delivery Method Room Air Weight: 198 lb 10.184 oz Body Mass Index (BMI) 35.2 Intake and Output for Last 24 Hours 08/15/19 08/16/19 08/17/19 23:59 23:59 23:59 Intake Total 1120 / 1760 2540 / 2540 Output Total 1200 / 1200 Balance 1120 / 1260 1340 / 1340 General: Alert, Oriented x3, Cooperative, No apparent distress HEENT: Atraumatic, PERRLA, EOMI, Normocephalic Oral: Moist Mucosa, No Gingival or Mucosal Lesions/ Ulcerations Neck: Supple, No JVD, Negative Carotid Bruits, Trachea Midline, Thyroid Normal Size and Texture Lungs: Clear to auscultation, Normal air movement, No rhonchi, No wheeze, No rales Cardiovascular: Regular rate, Regular Rhythm, Normal S1, Normal S2, Bradycardic Abdomen: Bowel Sounds Present, Soft, Non Tender, Non-Distended, No Hepato- splenomegaly Extremities: No clubbing, No cyanosis, No edema Skin: No rashes, No breakdown Lymphatic: No Cervical, Supraclavicular, or Inguinal Adenopathy Neurological: Cranial nerves II-XII grossly intact, Motor Exam 5/5 strength throughout, - - Nystagmus. Psych/Mental Status: Normal Affect, Appropriate, Alert and oriented to time, place, person, mood and affect Microbiology Past 72 Hours 01/09/20 09:30 Mucosa - Nose Influenza Types A,B Direct FA (NAIN) - Final Laboratory Results 08/17/19 05:58: Sodium 143, Potassium 3.8, Chloride 112 H, Carbon Dioxide 27.0, Anion Gap 4 L, BUN 15, Creatinine 1.07, Estim Creat Clear Calc 81.98, Est GFR (MDRD) Af Amer 105, Est GFR (MDRD) Non-Af 87, BUN/Creatinine Ratio 14.0, Glucose 92, Calcium 8.8, Total Bilirubin 1.70 H, AST 28, ALT 87 H, Alkaline Phosphatase 91, Total Protein 6.8, Albumin 3.7, Globulin 3.1, Albumin/Globulin Ratio 1.2 Clinical Impression(s) from Imaging Studies Chest X-Ray 08/16/19 09:25 IMPRESSION: Normal x-ray examination of the chest. Electronically Signed: James Cannon, at 9:55 EST , Service support , Abdomen/Pelvis CT 08/16/19 10:48 IMPRESSION: Normal unenhanced CT of the abdomen and pelvis. Electronically Signed: James Cannon, at 11:42 EST , Service support , Current Medications Acetaminophen (Tylenol) 650 mg PO Q6H PRN PRN PRN Reason: Pain Score 1-3/Temp > 100.7 F Meclizine HCl (Antivert) 25 mg PO 4X/DAY PRN PRN PRN Reason: DIZZINESS Last Admin: 08/17/19 09:06 Dose: 25 mg Documented by: Melatonin (Melatonin) 3 mg PO QHS PRN PRN PRN Reason: INSOMNIA Ondansetron HCl (Zofran) 4 mg IV Q8H PRN PRN PRN Reason: NAUSEA/VOMITING Last Admin: 08/17/19 09:55 Dose: 4 mg Documented by: Pantoprazole Sodium (Protonix) 20 mg PO DAILY PASHA Last Admin: 08/17/19 09:06 Dose: 20 mg Documented by: Prochlorperazine Edisylate (Compazine Iv) 5 mg IV Q4H PRN PRN PRN Reason: Breakthrough nausea/vomiting Sodium Chloride () 10 - 40 ml IV UD PRN PRN Reason: SALINE FLUSH Last Admin: 08/17/19 09:55 Dose: 10 ml Documented by: Medical Necessity - Tobacco Use Smoking Status: Never smoker Tobacco Use: Chew Assessment/Plan All Active Problems Vertigo (Acute) This is a 29 years old male patient presented to the emergency room because of dizziness, found to have vertigo secondary to BPPV. #1 vertigo: Secondary to BPPV. Patient still symptomatic, having nystagmus. He has been on Antivert. Lavaro's maneuver was performed by the therapist and patient felt better for short time and then he started having vertigo again. Apart from bradycardia which can be attributed to being athletic doing workouts, other vital signs are stable. Routine blood work was unremarkable. He is on Antivert PRN. Plan: Continue Antivert, start Valium as needed, DC home tomorrow. #2 elevated LFT: Bilirubin was elevated but seem to be chronic, AST back to normal and ALT is trending down. He denied any right upper quadrant abdominal pain. Recommend follow-up with PCP as outpatient. #3 DVT prophylaxis: Low risk patient, no prophylaxis dictated. This note was generated with [employer] dictation software. It may contain incorrect words, spelling, and punctuation that were not noted in checking the note before signing. Code Visit OBSV E&M: 48049 Subsequent observation care L2
[2019-08-17 14:59] VITALS: BP 115/67; PULSE 53; RESP 14; TEMP 36.9; O2SAT 96
--- NOTE | 2019-08-17 16:31 | CHAPLAIN ---
Type of Pastoral Visit _x__ Initial Visit ___ Follow-up Visit ___ On-call Visit ___ General Patient Visit ___ Spiritual Assessment ___ Family Conference ___ Bereavement ___ Rapid Response ___ Code Blue ___ Other (describe below) Pastoral Care Referral From _x__ Patient ___ Family ___ Nurse ___ Physician ___ Automation Tender ___ Looper Operator ___ Other (describe below) Sacrament/Intervention _x__ Active listening ___ Anointing ___ Confucianism ___ Bereavement ___ Communion ___ Marylu exploration ___ ___ Life review ___ Prayer ___ Reconciliation ___ Sacrament of Sick _x__ Supportive presence ___ Wedding ___ Other (describe below) Pastoral Comments
[2019-08-17 21:01] VITALS: BP 115/67; PULSE 60; RESP 14; TEMP 36.9; O2SAT 96
[2019-08-18 03:03] VITALS: BP 113/81; PULSE 60; RESP 14; TEMP 36.6; O2SAT 96
[2019-08-18] MEDS: Meclizine HCl 25 MG Tablet PO ×2 (03:06→10:03)
--- NOTE | 2019-08-18 09:13 | DCINST_ITS ---
- Discharge Diagnoses Current Active Problems: Current Active and Chronic Problems Vertigo (Acute) You will use the following diet at home:: Regular Your food should be the consistency of: Regular Discharge Activity: Return to Normal Activity Weight Bearing Status: Weight bearing as tolerated Call your doctor if you observe: Fever of 101 or Higher, Shortness of breath, Dizziness, Fainting spells, Chest pain, Increased palpitations (irregular heartbeat), Uncontrolled pain Instructions: VERTIGO, Unspecified Allergies/Adverse Reactions: Allergies No Known Allergies Allergy (Verified 06/28/18 13:31) Medications to take at Discharge Omeprazole [Prilosec] 20 mg PO DAILY 06/28/18 Meclizine HCl [Antivert] 25 mg PO 4X/DAY PRN PRN #20 tab 08/18/19 The following prescriptions were given: Meclizine HCl [Antivert] 25 mg PO 4X/DAY PRN PRN #20 tab PRN Reason: Vertigo Prescription Printed Primary Care Physician: Vicente Bonilla MD [Primary Care Provider] - Please follow up with your Primary Care Physician in: 1-2 weeks. Test Results: Test results from this visit will be discussed in further detail at your follow- up appointment, if applicable.
[2019-08-18 09:50] VITALS: BP 126/78; PULSE 64; RESP 18; TEMP 36.7; O2SAT 97
[2019-08-18] MEDS: Pantoprazole Sodium 20 MG Tablet PO (10:03)
[2019-08-18] MEDS: 0.9% Saline Lock 10 ML Syringe IV (11:26)
[2019-08-18] MEDS: Ondansetron 4 MG/2 ML Vial IV (11:26)
[2019-08-18 12:00] VITALS: BP 125/82; PULSE 54; RESP 18; TEMP 36.9; O2SAT 99
--- NOTE | 2019-08-18 12:02 | DS.PCM_ITS ---
Discharge Date and Diagnosis - Problem List Patient Problems: Active and Suspected Problems Vertigo (Acute) Date of Admission: 08/16/19 Date of Discharge: 08/18/19 - Primary Discharge Diagnosis Active and Suspected Problems Vertigo due to BPPV (Acute) Hospital Course and Treatment Imaging Results: Clinical Impression(s) from Imaging Studies Chest X-Ray 08/16/19 09:25 IMPRESSION: Normal x-ray examination of the chest. Electronically Signed: James Davis, at 9:55 EST , Service support , Abdomen/Pelvis CT 08/16/19 10:48 IMPRESSION: Normal unenhanced CT of the abdomen and pelvis. Electronically Signed: James Davis, at 11:42 EST , Service support , Operations: None Procedures: None Summary of Care Provided: Patient seen and examined on the day of discharge and appeared to be stable to be discharged home. He feels better but still having some vertigo but improved, no more nausea or vomiting. His vital signs are stable. The patient is a 29 year old M patient presented to the emergency room because of dizziness with spinning sensation and he was diagnosed with vertigo due to BPPV. His routine blood work was unremarkable except for mild dehydration which was treated with IV fluids. His LFT revealed slightly elevated total bilirubin as well as liver transaminases and this has been chronic. Patient denied any abdominal pain, no right upper quadrant abdominal pain. His lipase was normal. EKG was unremarkable. Troponin was negative. He was treated with IV fluids, IV antiemetics and Antivert as well as Valium. Patient did have nystagmus which is more prominent looking to the right side. Denies any other neurological symptoms and there was no focal deficit on physical examination. With Valium and Antivert, his symptoms improved compared to admission. Apart from bradycardia, other vital signs are stable. 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 Patient discharged home in a stable condition, discharged on Antivert PRN, recommended to be careful, take it easy and easy ambulation in the next couple of days until vertigo improve. Recommended follow -up with PCP in 1 to 2 weeks. Patient Problems: Active and Suspected Problems Vertigo (Acute) - Physical Exam Vitals/I&O's: Vital Signs Temp Pulse Resp BP Pulse Ox 98.1 F 64 18 126/78 H 97 08/18/19 09:50 08/18/19 09:50 08/18/19 09:50 08/18/19 09:50 08/18/19 09:50 Oxygen Delivery Method Room Air Weight: 198 lb 10.184 oz Body Mass Index (BMI) 35.2 Intake and Output for Last 24 Hours 08/16/19 08/17/19 08/18/19 23:59 23:59 23:59 Intake Total 1120 / 1760 3340 / 3340 Output Total 1600 / 1900 650 / 650 Balance 1120 / 1260 1740 / 1440 -650 / -650 General: Alert, Oriented x3, Cooperative, No apparent distress HEENT: Atraumatic, PERRLA, EOMI, Normocephalic Oral: Moist Mucosa, No Gingival or Mucosal Lesions/ Ulcerations Neck: Supple, No JVD, Negative Carotid Bruits, Trachea Midline, Thyroid Normal Size and Texture Lungs: Clear to auscultation, Normal air movement, No rhonchi, No wheeze, No rales Cardiovascular: Regular rate, Regular Rhythm, Normal S1, Normal S2, PMI Normal Abdomen: Bowel Sounds Present, Soft, Non Tender, Non-Distended, No Hepato- splenomegaly Extremities: No clubbing, No cyanosis, No edema Skin: No rashes, No breakdown Lymphatic: No Cervical, Supraclavicular, or Inguinal Adenopathy Neurological: Cranial nerves II-XII grossly intact, Neuro grossly intact Psych/Mental Status: Normal Affect, Appropriate Microbiology Past 72 Hours 08/16/19 09:30 Mucosa - Nose Influenza Types A,B Direct FA (NAIN) - Final Current Medications Acetaminophen (Tylenol) 650 mg PO Q6H PRN PRN PRN Reason: Pain Score 1-3/Temp > 100.7 F Diazepam (Valium) 5 mg PO BID PRN PRN PRN Reason: VERTIGO Meclizine HCl (Antivert) 25 mg PO 4X/DAY PRN PRN PRN Reason: DIZZINESS Last Admin: 08/18/19 10:03 Dose: 25 mg Documented by: Melatonin (Melatonin) 3 mg PO QHS PRN PRN PRN Reason: INSOMNIA Ondansetron HCl (Zofran) 4 mg IV Q8H PRN PRN PRN Reason: NAUSEA/VOMITING Last Admin: 08/18/19 11:26 Dose: 4 mg Documented by: Pantoprazole Sodium (Protonix) 20 mg PO DAILY PASHA Last Admin: 08/18/19 10:03 Dose: 20 mg Documented by: Prochlorperazine Edisylate (Compazine Iv) 5 mg IV Q4H PRN PRN PRN Reason: Breakthrough nausea/vomiting Sodium Chloride () 10 - 40 ml IV UD PRN PRN Reason: SALINE FLUSH Last Admin: 08/18/19 11:26 Dose: 10 ml Documented by: Discharge Activity: Return to Normal Activity Weight Bearing Status: Weight bearing as tolerated Call your doctor if you observe: Fever of 101 or Higher, Shortness of breath, Dizziness, Fainting spells, Chest pain, Increased palpitations (irregular heartbeat), Uncontrolled pain Home Medications: Medications to take at Discharge Omeprazole [Prilosec] 20 mg PO DAILY 06/28/18 Meclizine HCl [Antivert] 25 mg PO 4X/DAY PRN PRN #20 tab 08/18/19 Following Prescrptions Were Given to Patient: Meclizine HCl [Antivert] 25 mg PO 4X/DAY PRN PRN #20 tab PRN Reason: Vertigo Prescription Printed Primary Care Physician: Vicente Bonilla MD [Primary Care Provider] - Please follow up with your Primary Care Physician in: 1-2 weeks. Patient Instructions: VERTIGO, Unspecified Disposition: Home Minutes spent on discharge:: 25 Patient Condition:: Stable Medical Necessity - Tobacco Use Smoking Status: Never smoker Tobacco Use: Chew Meaningful Use Info Meaningful Use Diagnoses (Choose all that apply): None applicable Code Visit OBSV E&M: 48355 Observation care discharge
--- NOTE | 2019-08-18 12:08 | NURSING ---
this nurse had pt sit on edge of bed for 5 min and stand for 5 min and pt states he felt like I'm in a fog but not dizzy. Pt then felt well enough to walk the enamorado. pt did fine with walking the enamorado, no dizzyness. This nurse also obtained Orthostatic vitals and they were negative. Pt feels well enough to go home.
== END 2019-08-18 12:24 | disposition home or self-care (01) ==
LOC: ED 14:21 → MS3 16:22
PROVIDERS: Emergency Provider Emergency Medicine; Family Provider Family Medicine; PCP Family Medicine; Visit Provider Hospitalist
DX: H81.10 Benign paroxysmal vertigo, unspecified ear (principal); I10 Essential (primary) hypertension; Z23 Encounter for immunization; R94.5 Abnormal results of liver function studies; F17.220 Nicotine dependence, chewing tobacco, uncomplicated
CPT/HCPCS: 36415; 71045; 74177; 80053; 81001; 83690; 84484; 85025; 86308; 87804; 93005; 96361; 96374; 96375; 96376; 97116; 97162; 97530; 99218; 99285; J7030; Q9967; 90686; A4216; G0378; J2405

== ENCOUNTER → 2022-05-29 | Outpatient (CLI) | payer OTHER, SELFPAY ==
--- NOTE | 2022-05-29 07:07 | RAD_ITS ---
STUDY: X-RAY - THORACIC SPINE REASON FOR EXAM: Male, 32 years old. ARTHRITIS TECHNIQUE: 4 view(s) of the thoracic spine were obtained. COMPARISON: None. FINDINGS: Normal kyphosis of the thoracic spine. There is no substantial scoliosis. Normal thoracic vertebrae and endplates. Normal disc space heights. There is a separate dedicated radiograph report of the lumbar spine. The soft tissue structures are unremarkable. RAD/Thoracic Spine 2 Views IMPRESSION: Within normal limits x-ray examination of the thoracic spine. Electronically Signed: Kerri Torrez MD at 10:54 EDT ,
--- NOTE | 2022-05-29 07:07 | RAD_ITS ---
STUDY: X-RAY - LEFT SHOULDER REASON FOR EXAM: Male, 32 years old. ARTHRITIS TECHNIQUE: 4 view(s) of the shoulder. COMPARISON: None. FINDINGS: Normal glenohumeral articulation. Normal acromioclavicular joint. Normal acromion. Normal humeral head and visualized proximal humerus. The soft tissue structures are unremarkable. Normal visualized pulmonary apex. RAD/Shoulder min 2 Views IMPRESSION: Normal x-ray examination of the shoulder. Electronically Signed: Kerri Torrez MD at 9:37 EDT ,
--- NOTE | 2022-05-29 07:07 | RAD_ITS ---
STUDY: X-RAY - LUMBAR SPINE REASON FOR EXAM: Male, 32 years old. ARTHRITIS TECHNIQUE: 2 view(s) of the lumbar spine were obtained. COMPARISON: CT of the abdomen and pelvis dated 08/26/2019 FINDINGS: Normal lumbar lordosis. There is no substantial scoliosis. There is a normal alignment of the vertebrae. There are stable well corticated bony triangular foci within the anterior and superior L2 and L3 vertebra suggestive of limbus vertebrae. Normal disc space heights. The soft tissue structures are unremarkable. RAD/Lumbar Spine 2 or 3 Views IMPRESSION: Stable x-ray examination of the lumbar spine. Electronically Signed: Kerri Torrez MD at 10:52 EDT ,
--- NOTE | 2022-05-29 07:07 | RAD_ITS ---
STUDY: X-RAY - RIGHT WRIST REASON FOR EXAM: Male, 32 years old. Arthritis. Pain in the wrist. TECHNIQUE: 2 view(s) of the wrist were obtained. COMPARISON: None. FINDINGS: Normal visualized distal radius and ulna. Normal radiocarpal articulation. There is a negative ulnar variance. Normal carpal bones. Normal carpal articulations. Normal carpometacarpal articulation of the thumb. Normal second through fifth carpometacarpal articulations. Normal visualized metacarpal bones. The soft tissue structures are unremarkable. RAD/Wrist 2 Views IMPRESSION: Normal x-ray examination of the right wrist. Electronically Signed: Addison Maradiaga DO at 16:24 EDT ,
--- NOTE | 2022-05-29 07:07 | RAD_ITS ---
STUDY: X-RAY - RIGHT ANKLE REASON FOR EXAM: Male, 32 years old. ARTHRITIS TECHNIQUE: 3 view(s) of the ankle. COMPARISON: None. FINDINGS: Normal visualized distal tibia and fibula. Normal medial and lateral malleoli. Normal tibiotalar articulation and ankle mortise. Normal visualized talus and calcaneus. The visualized subtalar, talonavicular, calcaneocuboid and tarsal articulations are normal. The soft tissue structures are unremarkable. RAD/Ankle min 3 Views IMPRESSION: Within normal limits x-ray examination of the ankle. Electronically Signed: Kerri Torrez MD at 8:32 EDT ,
--- NOTE | 2022-05-29 07:07 | RAD_ITS ---
STUDY: X-RAY - RIGHT SHOULDER REASON FOR EXAM: Male, 32 years old. ARTHRITIS TECHNIQUE: 4 view(s) of the shoulder. COMPARISON: None. FINDINGS: Normal glenohumeral articulation. Normal acromioclavicular joint. Normal acromion. Normal humeral head and visualized proximal humerus. The soft tissue structures are unremarkable. Normal visualized pulmonary apex. RAD/Shoulder min 2 Views IMPRESSION: Normal normal limits x-ray examination of the shoulder. Electronically Signed: Kerri Torrez MD at 9:21 EDT ,
--- NOTE | 2022-05-29 07:07 | RAD_ITS ---
STUDY: X-RAY - PELVIS AND LEFT HIP REASON FOR EXAM: Male, 32 years old. ARTHRITIS TECHNIQUE: 3 views of the pelvis and hip. COMPARISON: None. FINDINGS: There is a non-specific bowel gas pattern. Normal visualized soft tissue structures. Normal bilateral iliac wings, sacroiliac joints and visualized sacrum. Normal bilateral superior and inferior pubic rami. Normal pubic symphysis. Normal bilateral ischial tuberosities. Normal visualized femoral head. Normal acetabulum. Normal hip joint. RAD/HIP, UNI W/ Pelvis 2-3 Views IMPRESSION: Normal x-ray examination of the pelvis and hip. Electronically Signed: Norman Grant MD at 12:29 EDT ,
== END | disposition home or self-care (01) ==
LOC: RAD.FUTURE 07:03 → RAD 07:38
PROVIDERS: PCP Family Medicine
DX: M13.80 Other specified arthritis, unspecified site (principal)
CPT/HCPCS: 72070; 72100; 73030; 73100; 73502; 73610

== ENCOUNTER → 2023-02-28 | Outpatient (CLI) | payer OTHER, SELFPAY ==
[2023-02-28 14:48] LABS: Semen Analysis Post Vas ABSENT
[2023-03-01 10:09] LABS: Pathologist Review Reviewed
== END | disposition home or self-care (01) ==
PROVIDERS: PCP Family Medicine
DX: Z13.6 Encounter for screening for cardiovascular disorders (principal)
CPT/HCPCS: 89321

== ENCOUNTER 2024-07-25 18:03 | Emergency (ER) | payer OTHER, SELFPAY ==
[2024-07-25 18:04] VITALS: BP 164/111; PULSE 108; RESP 16; TEMP 36.4; O2SAT 99; BMI 37.5
--- NOTE | 2024-07-25 18:27 | EX.ED.GENINJ ---
HPI History of Present Illness Chief Complaint: Laceration Informant: patient Onset/Context/Timing Onset: Today Mechanism/Context: Blunt Injury Location: Left eyebrow Worsened by: Nothing Relieved by: Nothing Associated Symptoms Associated Symptoms: Negative for Parasthesias, Weakness, Loss of function, Inability to ambulate, Loss of consciousness or Amnesia Narrative Narrative: Patient presents with a laceration to his left eyebrow that occurred today. Patient states he was wrestling at school with a student and was hit in his head. Patient noted some bleeding from his left eyebrow area. Patient states the bleeding stopped after several minutes of pressure. Patient denies any loss of consciousness. Patient denies any paresthesias or weakness. Patient denies any other injuries. Patient denies any nausea or vomiting. Patient denies any neck or back pain. Patient is unsure of his last tetanus. Tetanus Immunization: Unknown [facility] Medical History (Updated 07/25/24 @ 19:[address] Kingsley Mistry DO) ADD (attention deficit disorder) Home Medications ?Medication ?Instructions ?Recorded ?Last Taken ?Type omeprazole 20 mg capsule,delayed 20 mg PO DAILY REFUX 06/28/18 08/14/19 History release meclizine 25 mg tablet 25 mg PO 4X/DAY PRN PRN Vertigo 08/18/19 Unknown Rx #20 tabs Allergy/AdvReac Type Severity Reaction Status Date / Time No Known Allergies Allergy Verified 07/25/24 18:06 Surgical History Status post labral repair of shoulder History of repair of ACL H/O Achilles tendon repair Social History Smoking Status: Never smoker ROS ROS ED Constitutional Constitutional ED: Denies chills or fever(s) Eyes Eyes: Denies blurry vision or change in vision ENT ENT ED: Denies rhinorrhea or sore throat Cardiovascular Cardiovascular: Denies chest pain or palpitations Respiratory/Chest Respiratory/Chest: Reports cough; Denies dyspnea Gastrointestinal Gastrointestinal: Denies nausea or vomiting Genitourinary Genitourinary ED: Denies dysuria or hematuria Musculoskeletal Musculoskeletal: Denies back pain or neck pain Integumentary Denies abscess or rash Neurologic Neurologic: Denies headache(s) or weakness Allergic/Immunologic Allergic/Immunologic ED: Denies mouth swelling or urticaria EXAM Physical Exam Const Vital Signs: 07/25/24 18:04 Temperature 97.5 F L Temperature Source Temporal Pulse Rate 108 H Respiratory Rate 16 Blood Pressure 164/111 H Blood Pressure Mean 128 Pulse Ox 99 Oxygen Delivery Method Room Air Positive well nourished and well developed General Appearance ED: well developed and NAD HEENT HEENT Narrative: There is a 2.5 cm full-thickness linear laceration over the lateral aspect of the left eyebrow. There is moderate gapping of the wound margins. There is no bony crepitance or step-off. There are no foreign bodies noted. There is no active bleeding noted. Eyes PERRL and EOMs intact bilaterally Neck full ROM Neuro oriented x3, CN's II-XII intact bilaterally, moves all extremities, no focal motor deficits and no sensory deficits noted Sheela Coma Scale: document GCS findings Spontaneous Obeys Commands Oriented 15 Sensorium / Orientation: alert Motor Exam: strength 5/5 throughout Psych mental status grossly normal and thought process normal PROC Procedures Lacerations Left eyebrow: Length: 3 cm Depth: Sub Q Shape: Linear Prep: Sterile Conditions and Chlorhexadine Laceration repair: Irrigated, Lidocaine with epi, Local, Skin sutures and Wound explored Irrigated (ml): 100 Number of Sutures/[place]: 6 Suture Information: Ethilon, Simple and 6-0 MDM MDM MDM Narrative Medical decision making narrative: Patient was given a tetanus booster. The wound was cleaned and irrigated with copious amounts of normal saline. The wound was anesthetized with 1% lidocaine with epinephrine locally. The wound was closed with 6 simple interrupted # 6-0 nylon sutures under sterile technique. Patient tolerated the procedure well. Bacitracin dressing was applied. Patient was instructed to keep the wound clean and dry. Patient was instructed to follow-up with his primary care physician in 5 days for wound recheck and suture removal. Patient understood and was agreeable with the plan. All questions were answered. Discharge Plan Triage Chief Complaint: Laceration ED Provider: Kingsley Mistry Dx/Rx/DC Orders Clinical Impression: Laceration of left eyebrow, Closed head injury Instructions: ED Head Injury (Adult), ED FACIAL LACERATION Suture Tape Prescriptions: No Action omeprazole 20 MG capsule 20 mg PO DAILY meclizine 25 MG tablet 25 mg PO 4X/DAY PRN PRN (Reason: Vertigo) Qty: 20 0RF Primary Care Provider: Vicente Bonilla Referrals: Vicente Bonilla MD [Primary Care Provider] - Print Language: Macedonian Disposition Disposition: Home, Self Care
[2024-07-25] MEDS: Lidocaine 1% /Epi 1:100 (20ml) 20 ML Vial INFILT (18:56)
[2024-07-25] MEDS: Diphth,Pertuss(Acell),Tet Vac 0.5 ML Vial IM (18:56)
== END 2024-07-25 19:54 | disposition home or self-care (01) ==
PROVIDERS: Emergency Provider Emergency Medicine; PCP Family Medicine; Visit Provider Emergency Medicine
DX: S01.112A Laceration without foreign body of left eyelid and periocular area, initial encounter (principal); S09.90XA Unspecified injury of head, initial encounter; W50.0XXA Accidental hit or strike by another person, initial encounter; Y93.72 Activity, wrestling; Y92.218 Other school as the place of occurrence of the external cause; Z23 Encounter for immunization
CPT/HCPCS: 12013; 90471; 90715; 99283